=== PATIENT | female | born 1940 | race Caucasian/White ===

== ENCOUNTER 2020-11-27 13:49 | Inpatient (IN) | payer MEDICARE, BC ==
[2020-11-27 14:30] LABS: Hemoglobin 12.5 g/dL (12.0-15.5); Mean Corpuscular HGB CONC 31.8 g/dL (32.0-36.0); Mean Corpuscular Hemoglobin 26.8 pg (27.0-33.0); Mean Corpuscular Volume 84.2 fl (81.6-98.3); Mean Platelet Volume 12.2 fl (7.4-10.4); Platelet Count 139 10x3/uL (150-450); RBC Distribution Width 13.9 % (11.5-14.5); Red Blood Cell (RBC) Count 4.67 10x6/uL (3.90-5.03); White Blood Cell (WBC) Count 3.3 10x3/uL (3.5-10.5)
[2020-11-27 14:35] LABS: ALT (SGPT) 33 U/L (8-55); AST (SGOT) 64 U/L (5-34); Albumin 3.6 g/dL (3.4-4.8); Alkaline Phosphatase 54 U/L (40-110); Anion Gap 18 mmol/L (10-20); BUN (Urea Nitrogen) 22 mg/dL (9.8-20.1); Bilirubin, Total 0.5 mg/dL (0.2-1.2); Calc. Creatinine Clearance 0 mL/min (70-130); Calcium 8.9 mg/dL (7.8-10.44); Carbon Dioxide 23 mmol/L (23-31); Chloride 99 mmol/L (98-107); Globulin 2.6 g/dL (2.4-3.5); Glucose 145 mg/dL (83-110); Potassium 3.9 mmol/L (3.5-5.1); Protein, Total 6.2 g/dL (5.8-8.1); Sodium 136 mmol/L (136-145)
[2020-11-27 14:40] LABS: PTT 30.8 sec (22.0-33.0); Prothrombin Time 10.6 sec (9.5-12.1)
[2020-11-27 15:10] LABS: SARS-CoV-2 NAA Rapid Test DETECTED (NotDetected)
[2020-11-27 16:00] LABS: Band 37 % (5-11); Lymphocytes 5 % (21-51); Monocytes 2 % (0-10); Neutrophil 52 % (42-75); Reactive Lymphocytes 4 % (0-10)
[2020-11-27 16:01] LABS: MDiff Complete? YES; Manual Diff?? YES
[2020-11-27 16:02] LABS: Platelet Morphology Comment Appears Adequate
[2020-11-27] MEDS ORDERED: Ondansetron PF 4 MG/2 ML Vial IVP PRN (16:53)
[2020-11-27] MEDS ORDERED: Albuterol Sulfate 2.5 mg/3 ml Neb NEB PRN (17:07)
[2020-11-27 17:08] LABS: ALV-art Gradient 576.725 mmHg (0-20); Actual Bicarbonate (HCO3a) 25.1 mEq/L (22-28); CO2 Tension 42.3 mmHg (35.0-45.0); Calcium, Ionized (arterial) 1.17 mmol/L (1.12-1.30); Carboxyhemoglobin (COHb) 0.3 gm% (0.0-3.0); Hemoglobin (Hb) 13.6 g/dL (12.0-16.0); O2 Tension (PaO2), arterial 83.4 mmHg (> 70.0); Potassium - ABG Lab 3.9 mmol/L (3.70-5.30); Puncture Site RRA; pH, Arterial 7.39 (7.35-7.45)
[2020-11-27] MEDS ORDERED: Dexamethasone 10 MG/ML VIAL ONE (17:13)
[2020-11-27] MEDS ORDERED: Dextrose 5% in Water 1,000 ML IV PRN (17:48)
[2020-11-27] MEDS ORDERED: Dextrose 50% Abboject 50 ML SYRINGE SLOW IVP PRN (17:48)
[2020-11-27] MEDS ORDERED: Vancomycin 1.5 GRAM/300 ML BAG 1.5 GM in Premix Bag 1 BAG IVPB SCH (21:00)
[2020-11-27] MEDS: Dexamethasone 20 MG/5 ML VIAL SLOW IVP SCH (21:21)
[2020-11-27] MEDS: Cefepime 1 GM in Sodium Chloride 0.9% 100 ML IVPB SCH (21:21)
[2020-11-28 05:32] LABS: Anion Gap 18 mmol/L (10-20); BUN (Urea Nitrogen) 26 mg/dL (9.8-20.1); Calc. Creatinine Clearance 58 mL/min (70-130); Calcium 9.7 mg/dL (7.8-10.44); Carbon Dioxide 23 mmol/L (23-31); Chloride 101 mmol/L (98-107); Glucose 172 mg/dL (83-110); Potassium 3.8 mmol/L (3.5-5.1); Sodium 138 mmol/L (136-145)
[2020-11-28] MEDS: Dexamethasone 20 MG/5 ML VIAL SLOW IVP SCH ×2 (09:40→20:44)
[2020-11-28] MEDS: Aspirin 81 mg Enteric Coated Tablet PO SCH (09:41)
[2020-11-28] MEDS: Pantoprazole 40 MG VIAL IVP SCH (09:41)
[2020-11-28] MEDS: Enoxaparin Sodium 40 MG/0.4 ML SYRINGE SC SCH (09:41)
[2020-11-28] MEDS: Cefepime 1 GM in Sodium Chloride 0.9% 100 ML IVPB SCH ×2 (09:41→20:41)
[2020-11-28 11:15] LABS: Hemoglobin A1c 6.1 % (4.0-6.0)
[2020-11-28] MEDS: VANCOMYCIN 1.25 GM/250 ML BAG 1.25 GM in Premix Bag 1 BAG IVPB SCH (20:41)
[2020-11-28] MEDS: Carvedilol 25 MG TAB PO SCH (21:30)
[2020-11-28] MEDS ORDERED: Lorazepam 2 MG/ML VIAL SLOW IVP SCH (23:45)
[2020-11-29] MEDS: hydrALAZINE 20 MG/ML VIAL SLOW IVP PRN ×4 (09:13→22:39)
[2020-11-29] MEDS: Enoxaparin Sodium 40 MG/0.4 ML SYRINGE SC SCH (09:13)
[2020-11-29] MEDS: Cefepime 1 GM in Sodium Chloride 0.9% 100 ML IVPB SCH ×2 (09:14→20:12)
[2020-11-29] MEDS: Dexamethasone 20 MG/5 ML VIAL SLOW IVP SCH ×2 (09:14→20:12)
[2020-11-29] MEDS: Pantoprazole 40 MG VIAL IVP SCH (09:15)
[2020-11-29] MEDS: Carvedilol 25 MG TAB PO SCH ×2 (09:15→20:12)
[2020-11-29] MEDS: NIFEdipine XL 30 MG TAB PO SCH (09:15)
[2020-11-29] MEDS: Aspirin 81 mg Enteric Coated Tablet PO SCH (09:15)
[2020-11-29 09:18] LABS: #Monocytes 0.3 10x3/uL (0.0-1.1); #Neutrophils 4.9 10x3/uL (1.5-8.4); %Lymphocytes 11.4 % (18.0-47.0); %Monocytes 5.3 % (0.0-10.0); %Neutrophils 83.1 % (40.0-75.0); Hemoglobin 13.6 g/dL (12.0-15.5); Mean Corpuscular HGB CONC 32.9 g/dL (32.0-36.0); Mean Corpuscular Hemoglobin 26.7 pg (27.0-33.0); Mean Corpuscular Volume 81.3 fl (81.6-98.3); Mean Platelet Volume 11.7 fl (7.4-10.4); Platelet Count 174 10x3/uL (150-450); RBC Distribution Width 13.9 % (11.5-14.5); Red Blood Cell (RBC) Count 5.09 10x6/uL (3.90-5.03); White Blood Cell (WBC) Count 5.9 10x3/uL (3.5-10.5)
[2020-11-29 09:34] LABS: ALT (SGPT) 25 U/L (8-55); AST (SGOT) 57 U/L (5-34); Albumin 3.5 g/dL (3.4-4.8); Alkaline Phosphatase 54 U/L (40-110); Anion Gap 16 mmol/L (10-20); BUN (Urea Nitrogen) 30 mg/dL (9.8-20.1); Bilirubin, Total 0.4 mg/dL (0.2-1.2); CRP (Inflammatory) 7.95 mg/dL (= or < 0.5); Calc. Creatinine Clearance 80 mL/min (70-130); Calcium 9.9 mg/dL (7.8-10.44); Carbon Dioxide 20 mmol/L (23-31); Chloride 106 mmol/L (98-107); Globulin 3.5 g/dL (2.4-3.5); Glucose 186 mg/dL (83-110); Potassium 4.1 mmol/L (3.5-5.1); Sodium 138 mmol/L (136-145)
[2020-11-29 10:53] LABS: Actual Bicarbonate (HCO3a) 24.6 mEq/L (22-28); Base Excess (BEa) 2.4 mEq/L (-2.0 to +3.0); CO2 Tension 30.9 mmHg (35.0-45.0); Calcium, Ionized (arterial) 1.24 mmol/L (1.12-1.30); Carboxyhemoglobin (COHb) 0.2 gm% (0.0-3.0); Hemoglobin (Hb) 13.9 g/dL (12.0-16.0); O2 Tension (PaO2), arterial 62.6 mmHg (> 70.0); Potassium - ABG Lab 3.7 mmol/L (3.70-5.30); Puncture Site RRA; pH, Arterial 7.52 (7.35-7.45)
[2020-11-29 10:56] LABS: ALV-art Gradient 469.175 mmHg (0-20)
[2020-11-29] MEDS: Lorazepam 2 MG/ML VIAL SLOW IVP PRN ×2 (13:17→20:11)
[2020-11-29] MEDS: HumaLOG 300 UNITS/3 ML VIAL SC PRN (20:12)
[2020-11-29] MEDS ORDERED: Furosemide 40 MG/4 ML VIAL SLOW IVP SCH (20:45)
[2020-11-29] MEDS: VANCOMYCIN 1.25 GM/250 ML BAG 1.25 GM in Premix Bag 1 BAG IVPB SCH (20:58)
[2020-11-29] MEDS ORDERED: Dexmedetomidine 200 MCG/2 ML VIAL SLOW IVP SCH (22:00)
[2020-11-29] MEDS: Dexmedetomidine In 0.9 % NaCl 100 ML IVPB SCH (22:29)
[2020-11-30 04:08] LABS: Hemoglobin 13.1 g/dL (12.0-15.5); Mean Corpuscular HGB CONC 32.8 g/dL (32.0-36.0); Mean Corpuscular Hemoglobin 26.6 pg (27.0-33.0); Mean Corpuscular Volume 81.1 fl (81.6-98.3); Mean Platelet Volume 11.3 fl (7.4-10.4); Platelet Count 178 10x3/uL (150-450); RBC Distribution Width 14.1 % (11.5-14.5); Red Blood Cell (RBC) Count 4.93 10x6/uL (3.90-5.03)
[2020-11-30] MEDS: Dexmedetomidine In 0.9 % NaCl 100 ML IVPB SCH ×2 (04:24→15:27)
[2020-11-30 04:36] LABS: ALT (SGPT) 24 U/L (8-55); AST (SGOT) 43 U/L (5-34); Albumin 3.5 g/dL (3.4-4.8); Alkaline Phosphatase 47 U/L (40-110); Anion Gap 16 mmol/L (10-20); BUN (Urea Nitrogen) 29 mg/dL (9.8-20.1); Bilirubin, Total 0.5 mg/dL (0.2-1.2); Calc. Creatinine Clearance 81 mL/min (70-130); Calcium 9.8 mg/dL (7.8-10.44); Carbon Dioxide 22 mmol/L (23-31); Chloride 107 mmol/L (98-107); Glucose 200 mg/dL (83-110); Potassium 3.6 mmol/L (3.5-5.1); Protein, Total 6.5 g/dL (5.8-8.1); Sodium 141 mmol/L (136-145)
[2020-11-30] MEDS: hydrALAZINE 20 MG/ML VIAL SLOW IVP PRN ×2 (05:53→10:29)
[2020-11-30] MEDS: Furosemide 40 MG/4 ML VIAL SLOW IVP SCH ×2 (05:53→13:53)
[2020-11-30 05:54] LABS: Band 9 % (5-11); Lymphocytes 4 % (21-51); Monocytes 7 % (0-10); Neutrophil 74 % (42-75); Reactive Lymphocytes 6 % (0-10)
[2020-11-30 05:55] LABS: Anisocytosis SLIGHT = 6-15 cells (100X) (0-5/hpf); Microcytosis SLIGHT = 6-15 cells (100X) (0-5/hpf)
[2020-11-30 05:56] LABS: Large Platelets MODERATE; Manual Diff?? YES; Platelet Morphology Comment Appears Adequate
[2020-11-30 05:57] LABS: MDiff Complete? YES
[2020-11-30] MEDS: Dexamethasone 20 MG/5 ML VIAL SLOW IVP SCH ×2 (08:05→20:49)
[2020-11-30] MEDS: Enoxaparin Sodium 40 MG/0.4 ML SYRINGE SC SCH (08:05)
[2020-11-30] MEDS: Aspirin 81 mg Enteric Coated Tablet PO SCH (08:06)
[2020-11-30] MEDS: Pantoprazole 40 MG VIAL IVP SCH (08:06)
[2020-11-30] MEDS: Carvedilol 25 MG TAB PO SCH ×2 (08:06→20:51)
[2020-11-30] MEDS: HumaLOG 300 UNITS/3 ML VIAL SC PRN ×3 (08:27→20:49)
[2020-11-30] MEDS: Cefepime 1 GM in Sodium Chloride 0.9% 100 ML IVPB SCH ×2 (08:27→20:50)
[2020-11-30] MEDS: NIFEdipine XL 30 MG TAB PO SCH (08:28)
[2020-11-30 09:25] LABS: Actual Bicarbonate (HCO3a) 26.9 mEq/L (22-28); Base Excess (BEa) 4.1 mEq/L (-2.0 to +3.0); CO2 Tension 34.5 mmHg (35.0-45.0); Calcium, Ionized (arterial) 1.19 mmol/L (1.12-1.30); Carboxyhemoglobin (COHb) 0.3 gm% (0.0-3.0); Hemoglobin (Hb) 14.6 g/dL (12.0-16.0); O2 Tension (PaO2), arterial 51.7 mmHg (> 70.0); Potassium - ABG Lab 3.3 mmol/L (3.70-5.30); Puncture Site LRA; pH, Arterial 7.51 (7.35-7.45)
[2020-11-30 09:28] LABS: ALV-art Gradient 404.275 mmHg (0-20)
[2020-11-30] MEDS: Vancomycin 1.5 GRAM/300 ML BAG 1.5 GM in Premix Bag 1 BAG IVPB SCH (20:50)
[2020-12-01] MEDS: hydrALAZINE 20 MG/ML VIAL SLOW IVP PRN (02:34)
[2020-12-01] MEDS: Dexmedetomidine In 0.9 % NaCl 100 ML IVPB SCH ×3 (02:34→20:21)
[2020-12-01] MEDS: Lorazepam 2 MG/ML VIAL SLOW IVP PRN ×3 (03:22→20:02)
[2020-12-01] MEDS: Furosemide 40 MG/4 ML VIAL SLOW IVP SCH ×2 (05:12→14:47)
[2020-12-01] MEDS: Carvedilol 25 MG TAB PO SCH ×2 (08:10→20:02)
[2020-12-01] MEDS: Enoxaparin Sodium 40 MG/0.4 ML SYRINGE SC SCH (08:10)
[2020-12-01] MEDS: Dexamethasone 20 MG/5 ML VIAL SLOW IVP SCH ×2 (08:10→20:02)
[2020-12-01] MEDS: NIFEdipine XL 30 MG TAB PO SCH (08:10)
[2020-12-01] MEDS: Aspirin 81 mg Enteric Coated Tablet PO SCH (08:10)
[2020-12-01] MEDS: Cefepime 1 GM in Sodium Chloride 0.9% 100 ML IVPB SCH ×2 (08:11→20:02)
[2020-12-01] MEDS: Pantoprazole 40 MG VIAL IVP SCH (08:11)
[2020-12-01] MEDS: Amino Acids 4.25 %/Dextrose 5% 1,000 ML IV SCH (12:57)
[2020-12-01] MEDS: HumaLOG 300 UNITS/3 ML VIAL SC PRN ×3 (12:58→20:05)
[2020-12-01] MEDS: Vancomycin 1.5 GRAM/300 ML BAG 1.5 GM in Premix Bag 1 BAG IVPB SCH (20:02)
[2020-12-02] MEDS: Dexmedetomidine In 0.9 % NaCl 100 ML IVPB SCH ×3 (01:35→17:47)
[2020-12-02] MEDS: Amino Acids 4.25 %/Dextrose 5% 1,000 ML IV SCH (05:38)
[2020-12-02] MEDS: Furosemide 40 MG/4 ML VIAL SLOW IVP SCH ×2 (05:38→13:40)
[2020-12-02 06:40] LABS: ALT (SGPT) 24 U/L (8-55); AST (SGOT) 33 U/L (5-34); Albumin 3.3 g/dL (3.4-4.8); Alkaline Phosphatase 50 U/L (40-110); Anion Gap 16 mmol/L (10-20); BUN (Urea Nitrogen) 49 mg/dL (9.8-20.1); Bilirubin, Total 0.5 mg/dL (0.2-1.2); Calc. Creatinine Clearance 79 mL/min (70-130); Calcium 9.3 mg/dL (7.8-10.44); Carbon Dioxide 21 mmol/L (23-31); Chloride 107 mmol/L (98-107); Globulin 3.3 g/dL (2.4-3.5); Glucose 323 mg/dL (83-110); Hemoglobin 14.3 g/dL (12.0-15.5); Mean Corpuscular HGB CONC 32.2 g/dL (32.0-36.0); Mean Corpuscular Hemoglobin 26.1 pg (27.0-33.0); Mean Corpuscular Volume 81.2 fl (81.6-98.3); Mean Platelet Volume 11.4 fl (7.4-10.4); Platelet Count 179 10x3/uL (150-450); Protein, Total 6.6 g/dL (5.8-8.1); RBC Distribution Width 13.8 % (11.5-14.5); Red Blood Cell (RBC) Count 5.47 10x6/uL (3.90-5.03); Sodium 141 mmol/L (136-145); White Blood Cell (WBC) Count 4.7 10x3/uL (3.5-10.5)
[2020-12-02 06:44] LABS: Potassium 2.8 mmol/L (3.5-5.1)
[2020-12-02] MEDS: Pantoprazole 40 MG VIAL IVP SCH (07:48)
[2020-12-02] MEDS: Dexamethasone 20 MG/5 ML VIAL SLOW IVP SCH ×2 (07:48→20:58)
[2020-12-02] MEDS: Enoxaparin Sodium 40 MG/0.4 ML SYRINGE SC SCH (07:48)
[2020-12-02] MEDS: Cefepime 1 GM in Sodium Chloride 0.9% 100 ML IVPB SCH ×2 (07:48→20:57)
[2020-12-02] MEDS: Carvedilol 25 MG TAB PO SCH ×2 (07:49→20:57)
[2020-12-02] MEDS: Aspirin 81 mg Enteric Coated Tablet PO SCH (07:49)
[2020-12-02] MEDS: Potassium Chloride 20 MEQ in Premix Bag 1 BAG IVPB SCH ×2 (07:52→09:18)
[2020-12-02] MEDS: NIFEdipine XL 30 MG TAB PO SCH (07:53)
[2020-12-02] MEDS: HumaLOG 300 UNITS/3 ML VIAL SC PRN ×4 (07:54→20:59)
[2020-12-02 08:42] LABS: MDiff Complete? YES
[2020-12-02] MEDS ORDERED: Amino Acids 4.25 %/Dextrose 5% 2,000 ML BAG IV SCH (09:00)
[2020-12-02 09:06] LABS: Band 1 % (5-11); Lymphocytes 8 % (21-51); Monocytes 5 % (0-10); Neutrophil 85 % (42-75); Reactive Lymphocytes 1 % (0-10)
[2020-12-02 09:07] LABS: Platelet Morphology Comment Appears Adequate
[2020-12-02 09:08] LABS: RBC Morphology Normal
[2020-12-02] MEDS: Haloperidol Lactate 5 MG/ML VIAL SLOW IVP SCH ×2 (09:20→20:58)
[2020-12-02] MEDS: Lorazepam 2 MG/ML VIAL SLOW IVP PRN ×2 (10:02→15:10)
[2020-12-02] MEDS: hydrALAZINE 20 MG/ML VIAL SLOW IVP PRN (10:03)
[2020-12-02 12:00] LABS: ALV-art Gradient 605.525 mmHg (0-20); Actual Bicarbonate (HCO3a) 23.5 mEq/L (22-28); Base Excess (BEa) 0.8 mEq/L (-2.0 to +3.0); CO2 Tension 32.7 mmHg (35.0-45.0); Calcium, Ionized (arterial) 1.21 mmol/L (1.12-1.30); Carboxyhemoglobin (COHb) 0.2 gm% (0.0-3.0); Hemoglobin (Hb) 15.4 g/dL (12.0-16.0); O2 Tension (PaO2), arterial 66.6 mmHg (> 70.0); Potassium - ABG Lab 3.4 mmol/L (3.70-5.30); Puncture Site RRA; pH, Arterial 7.48 (7.35-7.45)
[2020-12-02 14:44] LABS: Anion Gap 18 mmol/L (10-20); BUN (Urea Nitrogen) 49 mg/dL (9.8-20.1); Calc. Creatinine Clearance 82 mL/min (70-130); Calcium 9.6 mg/dL (7.8-10.44); Carbon Dioxide 18 mmol/L (23-31); Chloride 107 mmol/L (98-107); Glucose 203 mg/dL (83-110); Magnesium 1.9 mg/dL (1.6-2.6); Potassium 3.4 mmol/L (3.5-5.1); Sodium 140 mmol/L (136-145)
[2020-12-02] MEDS ORDERED: Lantus 1000 UNITS/10 ML VIAL SC SCH ×2 (15:00→21:00)
[2020-12-02] MEDS ORDERED: Potassium Chloride 20 MEQ TAB PO SCH (15:30)
[2020-12-02] MEDS: Vancomycin 1.5 GRAM/300 ML BAG 1.5 GM in Premix Bag 1 BAG IVPB SCH (20:58)
[2020-12-02 21:03] LABS: Vancomycin, Trough 16.1 ug/mL
[2020-12-03] MEDS: Amino Acids 4.25 %/Dextrose 5% 1,000 ML IV SCH (01:16)
[2020-12-03] MEDS: hydrALAZINE 20 MG/ML VIAL SLOW IVP PRN ×2 (02:27→11:13)
[2020-12-03 04:33] LABS: #Monocytes 0.1 10x3/uL (0.0-1.1); #Neutrophils 4.8 10x3/uL (1.5-8.4); %Basophils 0.4 % (0.0-2.0); %Lymphocytes 6.1 % (18.0-47.0); %Monocytes 2.4 % (0.0-10.0); %Neutrophils 88.9 % (40.0-75.0); Hemoglobin 14.3 g/dL (12.0-15.5); Mean Corpuscular HGB CONC 33.3 g/dL (32.0-36.0); Mean Corpuscular Hemoglobin 26.6 pg (27.0-33.0); Mean Corpuscular Volume 80.1 fl (81.6-98.3); Mean Platelet Volume 11.3 fl (7.4-10.4); Platelet Count 200 10x3/uL (150-450); RBC Distribution Width 13.8 % (11.5-14.5); Red Blood Cell (RBC) Count 5.37 10x6/uL (3.90-5.03); White Blood Cell (WBC) Count 5.4 10x3/uL (3.5-10.5)
[2020-12-03 04:40] LABS: ALT (SGPT) 23 U/L (8-55); AST (SGOT) 31 U/L (5-34); Albumin 3.1 g/dL (3.4-4.8); Alkaline Phosphatase 50 U/L (40-110); Anion Gap 16 mmol/L (10-20); BUN (Urea Nitrogen) 49 mg/dL (9.8-20.1); Bilirubin, Total 0.5 mg/dL (0.2-1.2); CRP (Inflammatory) 2.54 mg/dL (= or < 0.5); Calc. Creatinine Clearance 89 mL/min (70-130); Calcium 9.2 mg/dL (7.8-10.44); Carbon Dioxide 17 mmol/L (23-31); Chloride 107 mmol/L (98-107); Globulin 3.1 g/dL (2.4-3.5); Glucose 251 mg/dL (83-110); Potassium 3.1 mmol/L (3.5-5.1); Protein, Total 6.2 g/dL (5.8-8.1); Sodium 137 mmol/L (136-145)
[2020-12-03] MEDS: Furosemide 40 MG/4 ML VIAL SLOW IVP SCH ×2 (05:37→14:33)
[2020-12-03 08:29] LABS: Base Excess (BEa) -0.6 mEq/L (-2.0 to +3.0); CO2 Tension 30.7 mmHg (35.0-45.0); Carboxyhemoglobin (COHb) 0.4 gm% (0.0-3.0); Hemoglobin (Hb) 14.8 g/dL (12.0-16.0); O2 Tension (PaO2), arterial 63.6 mmHg (> 70.0); Puncture Site RRA; pH, Arterial 7.47 (7.35-7.45)
[2020-12-03 08:34] LABS: ALV-art Gradient 611.025 mmHg (0-20)
[2020-12-03] MEDS: Carvedilol 25 MG TAB PO SCH ×2 (08:39→20:53)
[2020-12-03] MEDS: Aspirin 81 mg Enteric Coated Tablet PO SCH (08:39)
[2020-12-03] MEDS: Cefepime 1 GM in Sodium Chloride 0.9% 100 ML IVPB SCH ×2 (08:40→20:55)
[2020-12-03] MEDS: Pantoprazole 40 MG VIAL IVP SCH (08:40)
[2020-12-03] MEDS: NIFEdipine XL 30 MG TAB PO SCH (08:42)
[2020-12-03] MEDS: Haloperidol Lactate 5 MG/ML VIAL SLOW IVP SCH (08:42)
[2020-12-03] MEDS: Dexamethasone 20 MG/5 ML VIAL SLOW IVP SCH ×2 (08:42→20:56)
[2020-12-03] MEDS: Enoxaparin Sodium 40 MG/0.4 ML SYRINGE SC SCH (08:43)
[2020-12-03] MEDS: Dexmedetomidine In 0.9 % NaCl 100 ML IVPB SCH ×2 (08:43→16:17)
[2020-12-03] MEDS ORDERED: Lantus 1000 UNITS/10 ML VIAL SC SCH ×2 (09:00→21:00)
[2020-12-03] MEDS ORDERED: Potassium Chloride 20 MEQ TAB PO ONE ×2 (10:30→12:30)
[2020-12-03] MEDS: HumaLOG 300 UNITS/3 ML VIAL SC PRN ×3 (10:38→20:53)
[2020-12-03] MEDS: Lorazepam 2 MG/ML VIAL SLOW IVP PRN ×2 (11:14→21:23)
[2020-12-03 13:46] LABS: Anion Gap 15 mmol/L (10-20); BUN (Urea Nitrogen) 53 mg/dL (9.8-20.1); Calc. Creatinine Clearance 81 mL/min (70-130); Calcium 9.3 mg/dL (7.8-10.44); Carbon Dioxide 20 mmol/L (23-31); Chloride 108 mmol/L (98-107); Glucose 216 mg/dL (83-110); Magnesium 1.9 mg/dL (1.6-2.6); Potassium 3.3 mmol/L (3.5-5.1); Sodium 140 mmol/L (136-145)
[2020-12-03] MEDS ORDERED: Potassium Chloride 20 MEQ TAB PO SCH (15:15)
[2020-12-03] MEDS: Potassium Chloride 20 MEQ TAB PO SCH (16:12)
[2020-12-03] MEDS ORDERED: Magnesium Sulfate 2 GM in Sodium Chloride 0.9% 100 ML IVPB SCH (16:30)
[2020-12-03] MEDS ORDERED: Magnesium 2 GM/50 ML 2 GM in Premix Bag 1 BAG IVPB SCH (16:45)
[2020-12-03] MEDS: Vancomycin 1.5 GRAM/300 ML BAG 1.5 GM in Premix Bag 1 BAG IVPB SCH (20:56)
[2020-12-04] MEDS: Dexmedetomidine In 0.9 % NaCl 100 ML IVPB SCH ×4 (01:35→17:50)
[2020-12-04 03:56] LABS: #Monocytes 0.3 10x3/uL (0.0-1.1); #Neutrophils 8.2 10x3/uL (1.5-8.4); %Basophils 0.3 % (0.0-2.0); %Lymphocytes 3.4 % (18.0-47.0); %Monocytes 2.9 % (0.0-10.0); %Neutrophils 92.1 % (40.0-75.0); Hemoglobin 14.5 g/dL (12.0-15.5); Mean Corpuscular HGB CONC 32.4 g/dL (32.0-36.0); Mean Corpuscular Hemoglobin 26.3 pg (27.0-33.0); Mean Corpuscular Volume 81.1 fl (81.6-98.3); Mean Platelet Volume 11.9 fl (7.4-10.4); Platelet Count 229 10x3/uL (150-450); RBC Distribution Width 14.2 % (11.5-14.5); Red Blood Cell (RBC) Count 5.51 10x6/uL (3.90-5.03)
[2020-12-04 04:10] LABS: Anion Gap 16 mmol/L (10-20); BUN (Urea Nitrogen) 55 mg/dL (9.8-20.1); Calc. Creatinine Clearance 78 mL/min (70-130); Calcium 9.5 mg/dL (7.8-10.44); Carbon Dioxide 18 mmol/L (23-31); Chloride 113 mmol/L (98-107); Glucose 248 mg/dL (83-110); Magnesium 2.6 mg/dL (1.6-2.6); Phosphorus 3.1 mg/dL (2.3-4.7); Potassium 4.7 mmol/L (3.5-5.1); Sodium 142 mmol/L (136-145)
[2020-12-04] MEDS: Furosemide 40 MG/4 ML VIAL SLOW IVP SCH ×2 (05:08→13:20)
[2020-12-04] MEDS: hydrALAZINE 20 MG/ML VIAL SLOW IVP PRN (06:11)
[2020-12-04] MEDS: Lorazepam 2 MG/ML VIAL SLOW IVP PRN (07:24)
[2020-12-04] MEDS: Carvedilol 25 MG TAB PO SCH ×2 (08:06→20:10)
[2020-12-04] MEDS: Potassium Chloride 20 MEQ TAB PO SCH ×2 (08:06→16:41)
[2020-12-04] MEDS: Dexamethasone 20 MG/5 ML VIAL SLOW IVP SCH ×2 (08:07→19:47)
[2020-12-04] MEDS: Aspirin 81 mg Enteric Coated Tablet PO SCH (08:07)
[2020-12-04] MEDS: NIFEdipine XL 30 MG TAB PO SCH (08:07)
[2020-12-04] MEDS: Enoxaparin Sodium 40 MG/0.4 ML SYRINGE SC SCH (08:07)
[2020-12-04] MEDS: Cefepime 1 GM in Sodium Chloride 0.9% 100 ML IVPB SCH ×2 (08:07→19:47)
[2020-12-04] MEDS: Pantoprazole 40 MG VIAL IVP SCH (08:07)
[2020-12-04 08:28] LABS: Actual Bicarbonate (HCO3a) 19.6 mEq/L (22-28); Base Excess (BEa) -3.2 mEq/L (-2.0 to +3.0); CO2 Tension 29.7 mmHg (35.0-45.0); Calcium, Ionized (arterial) 1.28 mmol/L (1.12-1.30); Carboxyhemoglobin (COHb) 0.3 gm% (0.0-3.0); Hemoglobin (Hb) 15.6 g/dL (12.0-16.0); O2 Tension (PaO2), arterial 62.2 mmHg (> 70.0); Potassium - ABG Lab 4.1 mmol/L (3.70-5.30); Puncture Site RRA; pH, Arterial 7.44 (7.35-7.45)
[2020-12-04 08:30] LABS: ALV-art Gradient 613.675 mmHg (0-20)
[2020-12-04] MEDS ORDERED: Lantus 1000 UNITS/10 ML VIAL SC SCH ×2 (09:00→21:00)
[2020-12-04] MEDS ORDERED: Ventilator Sedation Protocol 1 EACH FS SCH (09:00)
[2020-12-04] MEDS: Propofol 1,000 MG/100 ML VIAL IV PRN ×2 (09:08→17:50)
[2020-12-04] MEDS ORDERED: DISCONTINUE PREVIOUS NARCOTIC PAIN MEDICATIONS AND BENZODIAZEPINES FS SCH (09:15)
[2020-12-04] MEDS ORDERED: Fentanyl BOLUS 250 ML IVPB PRN (09:15)
[2020-12-04] MEDS ORDERED: Propofol BOLUS 1,000 MG/100 ML VIAL IV PRN (09:15)
[2020-12-04] MEDS ORDERED: Lorazepam 2 MG/ML VIAL SLOW IVP PRN (09:15)
[2020-12-04] MEDS ORDERED: fentaNYL Citrate-0.9 % NaCl/PF 100 ML IVPB SCH (09:15)
[2020-12-04] MEDS ORDERED: Rocuronium Bromide 10 MG/ML (10ML VIAL) ONE (09:53)
[2020-12-04 12:51] LABS: ALV-art Gradient 587.075 mmHg (0-20); Actual Bicarbonate (HCO3a) 19.5 mEq/L (22-28); Base Excess (BEa) -4.1 mEq/L (-2.0 to +3.0); CO2 Tension 31.7 mmHg (35.0-45.0); Calcium, Ionized (arterial) 1.26 mmol/L (1.12-1.30); Carboxyhemoglobin (COHb) 0.2 gm% (0.0-3.0); Hemoglobin (Hb) 14.6 g/dL (12.0-16.0); O2 Tension (PaO2), arterial 86.3 mmHg (> 70.0); Puncture Site Arterial Line; pH, Arterial 7.41 (7.35-7.45)
[2020-12-04] MEDS: HumaLOG 300 UNITS/3 ML VIAL SC PRN ×3 (13:37→22:54)
[2020-12-04 17:04] LABS: Actual Bicarbonate (HCO3a) 21.1 mEq/L (22-28); Base Excess (BEa) -2.9 mEq/L (-2.0 to +3.0); CO2 Tension 34.6 mmHg (35.0-45.0); Calcium, Ionized (arterial) 1.27 mmol/L (1.12-1.30); Carboxyhemoglobin (COHb) 0.4 gm% (0.0-3.0); Hemoglobin (Hb) 14.9 g/dL (12.0-16.0); O2 Tension (PaO2), arterial 76.1 mmHg (> 70.0); Potassium - ABG Lab 3.9 mmol/L (3.70-5.30); Puncture Site Arterial Line
[2020-12-04] MEDS: Vancomycin 1.5 GRAM/300 ML BAG 1.5 GM in Premix Bag 1 BAG IVPB SCH (20:13)
[2020-12-05] MEDS ORDERED: Fentanyl CADD 100 ML ONE (03:01)
[2020-12-05] MEDS: Propofol 1,000 MG/100 ML VIAL IV PRN ×2 (03:19→08:42)
[2020-12-05 03:37] LABS: #Monocytes 0.2 10x3/uL (0.0-1.1); #Neutrophils 8.8 10x3/uL (1.5-8.4); %Basophils 0.2 % (0.0-2.0); %Lymphocytes 2.1 % (18.0-47.0); %Neutrophils 94.6 % (40.0-75.0); Hemoglobin 13.9 g/dL (12.0-15.5); Mean Corpuscular HGB CONC 31.6 g/dL (32.0-36.0); Mean Corpuscular Hemoglobin 26.2 pg (27.0-33.0); Mean Platelet Volume 12.8 fl (7.4-10.4); Platelet Count 228 10x3/uL (150-450); RBC Distribution Width 14.7 % (11.5-14.5); White Blood Cell (WBC) Count 9.3 10x3/uL (3.5-10.5)
[2020-12-05 03:51] LABS: ALT (SGPT) 20 U/L (8-55); AST (SGOT) 17 U/L (5-34); Albumin 2.9 g/dL (3.4-4.8); Alkaline Phosphatase 51 U/L (40-110); Anion Gap 17 mmol/L (10-20); BUN (Urea Nitrogen) 82 mg/dL (9.8-20.1); Bilirubin, Total 0.4 mg/dL (0.2-1.2); CRP (Inflammatory) 11.33 mg/dL (= or < 0.5); Calc. Creatinine Clearance 57 mL/min (70-130); Calcium 9.4 mg/dL (7.8-10.44); Carbon Dioxide 18 mmol/L (23-31); Chloride 116 mmol/L (98-107); Globulin 2.7 g/dL (2.4-3.5); Glucose 246 mg/dL (83-110); Magnesium 2.7 mg/dL (1.6-2.6); Potassium 4.4 mmol/L (3.5-5.1); Protein, Total 5.6 g/dL (5.8-8.1); Sodium 147 mmol/L (136-145)
[2020-12-05] MEDS: HumaLOG 300 UNITS/3 ML VIAL SC PRN ×4 (04:24→23:03)
[2020-12-05] MEDS: Furosemide 40 MG/4 ML VIAL SLOW IVP SCH ×2 (06:41→13:19)
[2020-12-05] MEDS: Aspirin 81 mg Enteric Coated Tablet PO SCH (08:25)
[2020-12-05] MEDS: Potassium Chloride 20 MEQ TAB PO SCH ×2 (08:25→18:18)
[2020-12-05] MEDS: Enoxaparin Sodium 40 MG/0.4 ML SYRINGE SC SCH (08:25)
[2020-12-05] MEDS: Dexamethasone 20 MG/5 ML VIAL SLOW IVP SCH ×2 (08:25→19:55)
[2020-12-05] MEDS: Cefepime 1 GM in Sodium Chloride 0.9% 100 ML IVPB SCH ×2 (08:26→19:56)
[2020-12-05] MEDS: Pantoprazole 40 MG VIAL IVP SCH (08:26)
[2020-12-05] MEDS: Dexmedetomidine In 0.9 % NaCl 100 ML IVPB SCH ×2 (08:27→19:57)
[2020-12-05] MEDS ORDERED: Lantus 1000 UNITS/10 ML VIAL SC SCH ×3 (09:00→21:00)
[2020-12-05] MEDS: Carvedilol 25 MG TAB PO SCH ×2 (10:06→19:55)
[2020-12-05] MEDS: NIFEdipine XL 30 MG TAB PO SCH (10:06)
[2020-12-05] MEDS: Lantus 1000 UNITS/10 ML VIAL SC SCH (10:39)
[2020-12-05 11:16] LABS: ALV-art Gradient 593.675 mmHg (0-20); Actual Bicarbonate (HCO3a) 21.8 mEq/L (22-28); Base Excess (BEa) -3.3 mEq/L (-2.0 to +3.0); CO2 Tension 39.7 mmHg (35.0-45.0); Calcium, Ionized (arterial) 1.28 mmol/L (1.12-1.30); Carboxyhemoglobin (COHb) 0.2 gm% (0.0-3.0); Hemoglobin (Hb) 14.1 g/dL (12.0-16.0); O2 Tension (PaO2), arterial 69.7 mmHg (> 70.0); Potassium - ABG Lab 4.1 mmol/L (3.70-5.30); Puncture Site RRA; pH, Arterial 7.36 (7.35-7.45)
[2020-12-05] MEDS: Acetaminophen 325 MG TAB PO PRN (13:19)
[2020-12-05] MEDS: Fentanyl CADD 100 ML IVPB SCH (18:54)
[2020-12-05 20:57] LABS: Vancomycin, Trough 24.3 ug/mL
[2020-12-06] MEDS: Propofol 1,000 MG/100 ML VIAL IV PRN ×4 (00:14→20:28)
[2020-12-06] MEDS: Dexmedetomidine In 0.9 % NaCl 100 ML IVPB SCH ×4 (02:19→18:39)
[2020-12-06] MEDS: hydrALAZINE 20 MG/ML VIAL SLOW IVP PRN (05:24)
[2020-12-06] MEDS: Furosemide 40 MG/4 ML VIAL SLOW IVP SCH ×4 (05:24→23:30)
[2020-12-06] MEDS: HumaLOG 300 UNITS/3 ML VIAL SC PRN ×3 (06:25→21:50)
[2020-12-06 08:19] LABS: #Monocytes 0.2 10x3/uL (0.0-1.1); #Neutrophils 7.7 10x3/uL (1.5-8.4); %Basophils 0.2 % (0.0-2.0); %Monocytes 2.7 % (0.0-10.0); %Neutrophils 92.9 % (40.0-75.0); Hemoglobin 14.3 g/dL (12.0-15.5); Mean Corpuscular HGB CONC 32.4 g/dL (32.0-36.0); Mean Corpuscular Hemoglobin 26.8 pg (27.0-33.0); Mean Corpuscular Volume 82.7 fl (81.6-98.3); Mean Platelet Volume 13.1 fl (7.4-10.4); Platelet Count 192 10x3/uL (150-450); RBC Distribution Width 14.8 % (11.5-14.5); Red Blood Cell (RBC) Count 5.33 10x6/uL (3.90-5.03); White Blood Cell (WBC) Count 8.3 10x3/uL (3.5-10.5)
[2020-12-06 08:23] LABS: ALT (SGPT) 15 U/L (8-55); AST (SGOT) 15 U/L (5-34); Alkaline Phosphatase 52 U/L (40-110); Anion Gap 16 mmol/L (10-20); BUN (Urea Nitrogen) 89 mg/dL (9.8-20.1); Bilirubin, Total 0.4 mg/dL (0.2-1.2); CRP (Inflammatory) 12.65 mg/dL (= or < 0.5); Calc. Creatinine Clearance 59 mL/min (70-130); Calcium 9.8 mg/dL (7.8-10.44); Carbon Dioxide 21 mmol/L (23-31); Chloride 113 mmol/L (98-107); Globulin 3.4 g/dL (2.4-3.5); Glucose 393 mg/dL (83-110); Magnesium 2.4 mg/dL (1.6-2.6); Potassium 3.8 mmol/L (3.5-5.1); Protein, Total 6.4 g/dL (5.8-8.1); Sodium 146 mmol/L (136-145)
[2020-12-06] MEDS: Lantus 1000 UNITS/10 ML VIAL SC SCH (08:40)
[2020-12-06] MEDS: Enoxaparin Sodium 40 MG/0.4 ML SYRINGE SC SCH ×2 (08:41→20:28)
[2020-12-06] MEDS: Pantoprazole 40 MG VIAL IVP SCH (08:41)
[2020-12-06] MEDS: Vancomycin HCl 1 GM in Sodium Chloride 0.9% 250 ML 250 ML IVPB SCH (08:42)
[2020-12-06] MEDS: Carvedilol 25 MG TAB PO SCH ×3 (08:42→20:27)
[2020-12-06] MEDS: Potassium Chloride 20 MEQ TAB PO SCH ×2 (08:42→14:01)
[2020-12-06] MEDS: Dexamethasone 20 MG/5 ML VIAL SLOW IVP SCH ×2 (08:42→20:27)
[2020-12-06] MEDS: NIFEdipine XL 30 MG TAB PO SCH ×2 (08:43→10:44)
[2020-12-06] MEDS: Aspirin 81 mg Enteric Coated Tablet PO SCH (08:44)
[2020-12-06] MEDS ORDERED: Lantus 1000 UNITS/10 ML VIAL SC SCH ×2 (10:29→21:00)
[2020-12-06 11:14] LABS: Anion Gap 15 mmol/L (10-20); BUN (Urea Nitrogen) 88 mg/dL (9.8-20.1); Calc. Creatinine Clearance 61 mL/min (70-130); Calcium 9.4 mg/dL (7.8-10.44); Carbon Dioxide 20 mmol/L (23-31); Chloride 116 mmol/L (98-107); Glucose 399 mg/dL (83-110); Potassium 3.9 mmol/L (3.5-5.1); Sodium 147 mmol/L (136-145)
[2020-12-06] MEDS ORDERED: Amlodipine 5 MG TAB PER TUBE SCH (11:15)
[2020-12-06 12:09] LABS: Actual Bicarbonate (HCO3a) 22.7 mEq/L (22-28); Base Excess (BEa) -2.4 mEq/L (-2.0 to +3.0); CO2 Tension 39.9 mmHg (35.0-45.0); Calcium, Ionized (arterial) 1.26 mmol/L (1.12-1.30); Carboxyhemoglobin (COHb) 0.5 gm% (0.0-3.0); O2 Tension (PaO2), arterial 61.7 mmHg (> 70.0); Potassium - ABG Lab 3.7 mmol/L (3.70-5.30); Puncture Site Arterial Line; pH, Arterial 7.37 (7.35-7.45)
[2020-12-06 12:12] LABS: ALV-art Gradient 458.825 mmHg (0-20)
[2020-12-06] MEDS: Fentanyl CADD 100 ML IVPB SCH (14:01)
[2020-12-06 22:54] LABS: Anion Gap 18 mmol/L (10-20); BUN (Urea Nitrogen) 99 mg/dL (9.8-20.1); Calc. Creatinine Clearance 53 mL/min (70-130); Calcium 9.6 mg/dL (7.8-10.44); Carbon Dioxide 22 mmol/L (23-31); Chloride 116 mmol/L (98-107); Glucose 313 mg/dL (83-110); Potassium 4.5 mmol/L (3.5-5.1); Sodium 151 mmol/L (136-145)
[2020-12-07] MEDS: HumaLOG 300 UNITS/3 ML VIAL SC PRN ×3 (01:00→21:04)
[2020-12-07] MEDS: Dexmedetomidine In 0.9 % NaCl 100 ML IVPB SCH ×3 (03:12→23:00)
[2020-12-07] MEDS: Fentanyl CADD 100 ML IVPB SCH ×2 (04:33→16:57)
[2020-12-07 06:59] LABS: ALV-art Gradient 330.675 mmHg (0-20); Actual Bicarbonate (HCO3a) 27.8 mEq/L (22-28); Base Excess (BEa) 3.7 mEq/L (-2.0 to +3.0); CO2 Tension 40.1 mmHg (35.0-45.0); Calcium, Ionized (arterial) 1.26 mmol/L (1.12-1.30); Carboxyhemoglobin (COHb) 0.5 gm% (0.0-3.0); Hemoglobin (Hb) 14.7 g/dL (12.0-16.0); Potassium - ABG Lab 4.5 mmol/L (3.70-5.30); Puncture Site Arterial Line; pH, Arterial 7.46 (7.35-7.45)
[2020-12-07] MEDS: Furosemide 40 MG/4 ML VIAL SLOW IVP SCH ×4 (08:14→23:00)
[2020-12-07] MEDS: Propofol 1,000 MG/100 ML VIAL IV PRN ×2 (10:04→17:48)
[2020-12-07] MEDS: Dexamethasone 20 MG/5 ML VIAL SLOW IVP SCH ×2 (10:05→21:00)
[2020-12-07] MEDS: Enoxaparin Sodium 40 MG/0.4 ML SYRINGE SC SCH ×2 (10:05→21:01)
[2020-12-07] MEDS: Pantoprazole 40 MG VIAL IVP SCH (10:06)
[2020-12-07] MEDS: Aspirin 81 mg Enteric Coated Tablet PO SCH (10:07)
[2020-12-07] MEDS: Potassium Chloride 20 MEQ TAB PO SCH ×2 (10:07→16:57)
[2020-12-07] MEDS: Carvedilol 25 MG TAB PO SCH ×2 (10:08→23:01)
[2020-12-07] MEDS: Amlodipine 5 MG TAB PER TUBE SCH (10:08)
[2020-12-07] MEDS: Lantus 1000 UNITS/10 ML VIAL SC SCH ×2 (10:10→21:02)
[2020-12-07] MEDS: Vancomycin HCl 1 GM in Sodium Chloride 0.9% 250 ML 250 ML IVPB SCH (13:15)
[2020-12-07] MEDS ORDERED: HumaLOG 300 UNITS/3 ML VIAL SC PRN (18:30)
[2020-12-08] MEDS: Dexmedetomidine In 0.9 % NaCl 100 ML IVPB SCH ×2 (04:51→09:40)
[2020-12-08] MEDS: HumaLOG 300 UNITS/3 ML VIAL SC PRN (05:00)
[2020-12-08] MEDS: Furosemide 40 MG/4 ML VIAL SLOW IVP SCH ×3 (06:21→17:00)
[2020-12-08 08:15] LABS: Actual Bicarbonate (HCO3a) 25.2 mEq/L (22-28); Base Excess (BEa) 0.7 mEq/L (-2.0 to +3.0); CO2 Tension 39.9 mmHg (35.0-45.0); Calcium, Ionized (arterial) 1.25 mmol/L (1.12-1.30); Carboxyhemoglobin (COHb) 0.6 gm% (0.0-3.0); Hemoglobin (Hb) 14.9 g/dL (12.0-16.0); O2 Tension (PaO2), arterial 53.4 mmHg (> 70.0); Potassium - ABG Lab 3.4 mmol/L (3.70-5.30); Puncture Site Arterial Line; pH, Arterial 7.42 (7.35-7.45)
[2020-12-08 08:19] LABS: ALV-art Gradient 395.825 mmHg (0-20)
[2020-12-08 09:11] LABS: #Monocytes 0.7 10x3/uL (0.0-1.1); #Neutrophils 14.3 10x3/uL (1.5-8.4); %Basophils 0.2 % (0.0-2.0); %Lymphocytes 2.9 % (18.0-47.0); %Monocytes 4.4 % (0.0-10.0); %Neutrophils 91.3 % (40.0-75.0); Hemoglobin 14.2 g/dL (12.0-15.5); Mean Corpuscular HGB CONC 31.3 g/dL (32.0-36.0); Mean Corpuscular Hemoglobin 26.1 pg (27.0-33.0); Mean Corpuscular Volume 83.1 fl (81.6-98.3); Platelet Count 216 10x3/uL (150-450); RBC Distribution Width 15.3 % (11.5-14.5); Red Blood Cell (RBC) Count 5.45 10x6/uL (3.90-5.03); White Blood Cell (WBC) Count 15.6 10x3/uL (3.5-10.5)
[2020-12-08 09:19] LABS: ALT (SGPT) 13 U/L (8-55); AST (SGOT) 14 U/L (5-34); Alkaline Phosphatase 53 U/L (40-110); Anion Gap 18 mmol/L (10-20); Bilirubin, Total 0.3 mg/dL (0.2-1.2); Calc. Creatinine Clearance 45 mL/min (70-130); Calcium 9.5 mg/dL (7.8-10.44); Carbon Dioxide 24 mmol/L (23-31); Chloride 115 mmol/L (98-107); Globulin 3.3 g/dL (2.4-3.5); Glucose 358 mg/dL (83-110); Magnesium 2.4 mg/dL (1.6-2.6); Potassium 3.5 mmol/L (3.5-5.1); Protein, Total 6.3 g/dL (5.8-8.1); Sodium 153 mmol/L (136-145)
[2020-12-08 09:30] LABS: BUN (Urea Nitrogen) 116 mg/dL (9.8-20.1)
[2020-12-08] MEDS: Dexamethasone 20 MG/5 ML VIAL SLOW IVP SCH ×2 (09:37→23:08)
[2020-12-08] MEDS: Pantoprazole 40 MG VIAL IVP SCH (09:37)
[2020-12-08] MEDS: Enoxaparin Sodium 40 MG/0.4 ML SYRINGE SC SCH ×2 (09:37→20:52)
[2020-12-08] MEDS: Amlodipine 5 MG TAB PER TUBE SCH (09:38)
[2020-12-08] MEDS: Aspirin 81 mg Enteric Coated Tablet PO SCH (09:38)
[2020-12-08] MEDS: Potassium Chloride 20 MEQ TAB PO SCH ×2 (09:38→16:56)
[2020-12-08] MEDS: Carvedilol 25 MG TAB PO SCH ×2 (09:39→20:52)
[2020-12-08] MEDS: Propofol 1,000 MG/100 ML VIAL IV PRN ×2 (09:40→20:51)
[2020-12-08] MEDS: Vancomycin HCl 1 GM in Sodium Chloride 0.9% 250 ML 250 ML IVPB SCH (09:40)
[2020-12-08] MEDS: Fentanyl CADD 100 ML IVPB SCH (09:41)
[2020-12-08] MEDS: INSULIN REGULAR IN 0.9 % NACL 100 UNIT in Premix Bag 1 BAG IVPB SCH (10:02)
[2020-12-08] MEDS: Furosemide 20 MG/2 ML VIAL ONE (11:42)
[2020-12-08 14:01] LABS: Actual Bicarbonate (HCO3a) 23.6 mEq/L (22-28); Base Excess (BEa) -1.6 mEq/L (-2.0 to +3.0); CO2 Tension 41.6 mmHg (35.0-45.0); Calcium, Ionized (arterial) 1.23 mmol/L (1.12-1.30); Carboxyhemoglobin (COHb) 0.6 gm% (0.0-3.0); Hemoglobin (Hb) 14.3 g/dL (12.0-16.0); O2 Tension (PaO2), arterial 52.7 mmHg (> 70.0); Potassium - ABG Lab 3.4 mmol/L (3.70-5.30); Puncture Site Arterial Line; pH, Arterial 7.37 (7.35-7.45)
[2020-12-08] MEDS ORDERED: Norepinephrine 8 MG/0.9% NS 250 ML ONE (17:36)
[2020-12-08 23:22] LABS: Bilirubin Neg (Negative); Blood, Urine 10 (Negative); Clarity Clear (Clear); Glucose, Urine (Dipstick) Normal (Negative); Ketone, Urine Negative (Negative); Leukocyte Negative (Negative); Nitrite Negative (Negative); Protein, Urine (Dipstick) Negative (Neg-Trace); Urobilinogen Normal mg/dL (Less than 2)
[2020-12-08 23:30] LABS: Urine Culture Reflex No No
[2020-12-08 23:32] LABS: WBC/HPF 0-3 HPF (0-3)
[2020-12-08 23:33] LABS: Bacteria/HPF None Seen HPF (None Seen)
[2020-12-09] MEDS: Furosemide 40 MG/4 ML VIAL SLOW IVP SCH ×4 (00:30→17:40)
[2020-12-09 04:25] LABS: Hemoglobin 14.1 g/dL (12.0-15.5); Mean Corpuscular HGB CONC 31.8 g/dL (32.0-36.0); Mean Corpuscular Hemoglobin 26.3 pg (27.0-33.0); Mean Corpuscular Volume 82.8 fl (81.6-98.3); Mean Platelet Volume 13.4 fl (7.4-10.4); Platelet Count 263 10x3/uL (150-450); RBC Distribution Width 15.7 % (11.5-14.5); Red Blood Cell (RBC) Count 5.36 10x6/uL (3.90-5.03); White Blood Cell (WBC) Count 22.2 10x3/uL (3.5-10.5)
[2020-12-09 04:44] LABS: MDiff Complete? YES
[2020-12-09 04:47] LABS: Band 6 % (5-11); Lymphocytes 1 % (21-51); Metamyelocyte 1 % (0-0); Monocytes 3 % (0-10); Neutrophil 88 % (42-75); Promyelocytes 1 % (0-0)
[2020-12-09 04:50] LABS: Platelet Clumps SLIGHT; Platelet Morphology Comment PLT clumps seen-ADEQ; RBC Morphology Normal
[2020-12-09 06:16] LABS: ALT (SGPT) 13 U/L (8-55); AST (SGOT) 20 U/L (5-34); Albumin 2.9 g/dL (3.4-4.8); Alkaline Phosphatase 51 U/L (40-110); Anion Gap 18 mmol/L (10-20); Bilirubin, Total 0.4 mg/dL (0.2-1.2); Calc. Creatinine Clearance 47 mL/min (70-130); Calcium 9.6 mg/dL (7.8-10.44); Carbon Dioxide 24 mmol/L (23-31); Chloride 118 mmol/L (98-107); Globulin 3.3 g/dL (2.4-3.5); Glucose 168 mg/dL (83-110); Potassium 4.4 mmol/L (3.5-5.1); Protein, Total 6.2 g/dL (5.8-8.1); Sodium 156 mmol/L (136-145)
[2020-12-09 06:26] LABS: BUN (Urea Nitrogen) 117 mg/dL (9.8-20.1)
[2020-12-09 07:14] LABS: Actual Bicarbonate (HCO3a) 26.4 mEq/L (22-28); Base Excess (BEa) 1.6 mEq/L (-2.0 to +3.0); CO2 Tension 42.1 mmHg (35.0-45.0); Calcium, Ionized (arterial) 1.23 mmol/L (1.12-1.30); Hemoglobin (Hb) 14.4 g/dL (12.0-16.0); O2 Tension (PaO2), arterial 44.8 mmHg (> 70.0); Potassium - ABG Lab 4.3 mmol/L (3.70-5.30); Puncture Site Arterial Line; pH, Arterial 7.42 (7.35-7.45)
[2020-12-09 07:20] LABS: ALV-art Gradient 401.675 mmHg (0-20)
[2020-12-09] MEDS: Dexamethasone 20 MG/5 ML VIAL SLOW IVP SCH ×2 (08:45→20:47)
[2020-12-09] MEDS: Enoxaparin Sodium 40 MG/0.4 ML SYRINGE SC SCH ×2 (08:45→20:48)
[2020-12-09] MEDS: Pantoprazole 40 MG VIAL IVP SCH (08:46)
[2020-12-09] MEDS: Aspirin 81 mg Enteric Coated Tablet PO SCH (08:47)
[2020-12-09] MEDS: Amlodipine 5 MG TAB PER TUBE SCH (08:47)
[2020-12-09] MEDS: Carvedilol 25 MG TAB PO SCH (08:47)
[2020-12-09] MEDS ORDERED: Vecuronium Bromide 50 MG in Sodium Chloride 0.9% 250 ML 250 ML IV SCH (10:37)
[2020-12-09] MEDS ORDERED: Vecuronium 10 MG VIAL IVP SCH (11:00)
[2020-12-09] MEDS: Hydrocortisone Sod Succ/PF 100 mg/2 ml Vial IVP SCH ×2 (11:04→16:06)
[2020-12-09] MEDS: Vecuronium Bromide 50 MG in Sodium Chloride 0.9% 250 ML 250 ML IV SCH ×3 (11:05→23:34)
[2020-12-09 16:23] LABS: Actual Bicarbonate (HCO3a) 26.5 mEq/L (22-28); Base Excess (BEa) 0.8 mEq/L (-2.0 to +3.0); CO2 Tension 46.2 mmHg (35.0-45.0); Calcium, Ionized (arterial) 1.23 mmol/L (1.12-1.30); Carboxyhemoglobin (COHb) 0.9 gm% (0.0-3.0); Hemoglobin (Hb) 13.8 g/dL (12.0-16.0); O2 Tension (PaO2), arterial 60.9 mmHg (> 70.0); Potassium - ABG Lab 4.6 mmol/L (3.70-5.30); Puncture Site Arterial Line; pH, Arterial 7.38 (7.35-7.45)
[2020-12-09] MEDS: Propofol 1,000 MG/100 ML VIAL IV PRN ×2 (18:45→23:34)
[2020-12-10] MEDS: Hydrocortisone Sod Succ/PF 100 mg/2 ml Vial IVP SCH ×4 (00:26→23:26)
[2020-12-10] MEDS: Furosemide 40 MG/4 ML VIAL SLOW IVP SCH ×5 (00:26→23:26)
[2020-12-10] MEDS: Carvedilol 25 MG TAB PO SCH ×3 (06:02→21:57)
[2020-12-10] MEDS: Propofol 1,000 MG/100 ML VIAL IV PRN ×4 (06:03→22:00)
[2020-12-10] MEDS: Vecuronium Bromide 50 MG in Sodium Chloride 0.9% 250 ML 250 ML IV SCH ×3 (06:03→22:00)
[2020-12-10 07:59] LABS: Actual Bicarbonate (HCO3a) 26.8 mEq/L (22-28); Base Excess (BEa) 0.5 mEq/L (-2.0 to +3.0); CO2 Tension 49.4 mmHg (35.0-45.0); Calcium, Ionized (arterial) 1.22 mmol/L (1.12-1.30); Carboxyhemoglobin (COHb) 0.6 gm% (0.0-3.0); Hemoglobin (Hb) 13.8 g/dL (12.0-16.0); Potassium - ABG Lab 3.8 mmol/L (3.70-5.30); Puncture Site Arterial Line; pH, Arterial 7.35 (7.35-7.45)
[2020-12-10] MEDS: Enoxaparin Sodium 40 MG/0.4 ML SYRINGE SC SCH ×2 (08:02→21:57)
[2020-12-10] MEDS: Aspirin 81 mg Enteric Coated Tablet PO SCH (08:02)
[2020-12-10] MEDS: Pantoprazole 40 MG VIAL IVP SCH (08:02)
[2020-12-10] MEDS: Dexamethasone 20 MG/5 ML VIAL SLOW IVP SCH ×2 (08:02→21:57)
[2020-12-10] MEDS: Amlodipine 5 MG TAB PER TUBE SCH (08:03)
[2020-12-10] MEDS: hydrALAZINE 20 MG/ML VIAL SLOW IVP PRN (08:57)
[2020-12-10] MEDS: Fentanyl CADD 100 ML IVPB SCH (10:18)
[2020-12-10 18:25] LABS: ALT (SGPT) 14 U/L (8-55); AST (SGOT) 20 U/L (5-34); Albumin 2.7 g/dL (3.4-4.8); Alkaline Phosphatase 46 U/L (40-110); Anion Gap 19 mmol/L (10-20); Bilirubin, Total 0.4 mg/dL (0.2-1.2); Calc. Creatinine Clearance 40 mL/min (70-130); Calcium 9.5 mg/dL (7.8-10.44); Carbon Dioxide 26 mmol/L (23-31); Chloride 113 mmol/L (98-107); Globulin 3.7 g/dL (2.4-3.5); Glucose 270 mg/dL (83-110); Potassium 3.5 mmol/L (3.5-5.1); Protein, Total 6.4 g/dL (5.8-8.1); Sodium 154 mmol/L (136-145)
[2020-12-10 18:32] LABS: Hemoglobin 13.3 g/dL (12.0-15.5); Mean Corpuscular HGB CONC 32.1 g/dL (32.0-36.0); Mean Corpuscular Hemoglobin 27.4 pg (27.0-33.0); Mean Corpuscular Volume 85.2 fl (81.6-98.3); Mean Platelet Volume 13.7 fl (7.4-10.4); Platelet Count 197 10x3/uL (150-450); RBC Distribution Width 15.8 % (11.5-14.5); Red Blood Cell (RBC) Count 4.86 10x6/uL (3.90-5.03); White Blood Cell (WBC) Count 12.3 10x3/uL (3.5-10.5)
[2020-12-10 18:35] LABS: BUN (Urea Nitrogen) 150 mg/dL (9.8-20.1)
[2020-12-10 19:01] LABS: #Monocytes 0.3 10x3/uL (0.0-1.1); #Neutrophils 11.1 10x3/uL (1.5-8.4); %Basophils 0.2 % (0.0-2.0); %Lymphocytes 3.9 % (18.0-47.0); %Monocytes 2.1 % (0.0-10.0); %Neutrophils 90.8 % (40.0-75.0)
[2020-12-10] MEDS: INSULIN REGULAR IN 0.9 % NACL 100 UNIT in Premix Bag 1 BAG IVPB SCH (22:00)
[2020-12-11] MEDS: Propofol 1,000 MG/100 ML VIAL IV PRN ×5 (03:28→22:27)
[2020-12-11] MEDS: Norepinephrine 8 MG/0.9% NS 250 ML IVPB SCH ×2 (03:28→22:26)
[2020-12-11 04:18] LABS: #Basophils 0.1 10x3/uL (0.0-0.2); #Monocytes 0.3 10x3/uL (0.0-1.1); #Neutrophils 14.2 10x3/uL (1.5-8.4); %Basophils 0.4 % (0.0-2.0); %Lymphocytes 3.8 % (18.0-47.0); %Neutrophils 90.3 % (40.0-75.0); Hemoglobin 12.4 g/dL (12.0-15.5); Mean Corpuscular HGB CONC 31.4 g/dL (32.0-36.0); Mean Corpuscular Hemoglobin 26.6 pg (27.0-33.0); Mean Corpuscular Volume 84.6 fl (81.6-98.3); Mean Platelet Volume 13.6 fl (7.4-10.4); RBC Distribution Width 15.6 % (11.5-14.5); Red Blood Cell (RBC) Count 4.67 10x6/uL (3.90-5.03); White Blood Cell (WBC) Count 15.7 10x3/uL (3.5-10.5)
[2020-12-11 04:19] LABS: Platelet Count 229 10x3/uL (150-450)
[2020-12-11 04:28] LABS: ALT (SGPT) 14 U/L (8-55); AST (SGOT) 18 U/L (5-34); Albumin 2.6 g/dL (3.4-4.8); Alkaline Phosphatase 38 U/L (40-110); Anion Gap 19 mmol/L (10-20); Bilirubin, Total 0.3 mg/dL (0.2-1.2); Calc. Creatinine Clearance 44 mL/min (70-130); Calcium 9.3 mg/dL (7.8-10.44); Carbon Dioxide 26 mmol/L (23-31); Chloride 116 mmol/L (98-107); Glucose 191 mg/dL (83-110); Potassium 3.2 mmol/L (3.5-5.1); Protein, Total 5.6 g/dL (5.8-8.1); Sodium 158 mmol/L (136-145)
[2020-12-11 04:37] LABS: BUN (Urea Nitrogen) 154 mg/dL (9.8-20.1)
[2020-12-11] MEDS: Furosemide 40 MG/4 ML VIAL SLOW IVP SCH ×4 (05:48→23:52)
[2020-12-11 08:08] LABS: Actual Bicarbonate (HCO3a) 29.4 mEq/L (22-28); Base Excess (BEa) 4.3 mEq/L (-2.0 to +3.0); CO2 Tension 45.8 mmHg (35.0-45.0); Carboxyhemoglobin (COHb) 0.7 gm% (0.0-3.0); Hemoglobin (Hb) 13.3 g/dL (12.0-16.0); Potassium - ABG Lab 3.3 mmol/L (3.70-5.30); Puncture Site Arterial Line; pH, Arterial 7.43 (7.35-7.45)
[2020-12-11] MEDS: Dexamethasone 20 MG/5 ML VIAL SLOW IVP SCH ×2 (08:45→22:19)
[2020-12-11] MEDS: Enoxaparin Sodium 40 MG/0.4 ML SYRINGE SC SCH ×2 (08:46→22:19)
[2020-12-11] MEDS: Aspirin 81 mg Enteric Coated Tablet PO SCH (08:46)
[2020-12-11] MEDS: Pantoprazole 40 MG VIAL IVP SCH (08:46)
[2020-12-11] MEDS: Amlodipine 5 MG TAB PER TUBE SCH (08:46)
[2020-12-11] MEDS: Carvedilol 25 MG TAB PO SCH ×2 (08:46→22:19)
[2020-12-11] MEDS: Hydrocortisone Sod Succ/PF 100 mg/2 ml Vial IVP SCH ×2 (11:47→22:19)
[2020-12-11] MEDS: Fentanyl CADD 100 ML IVPB SCH (16:33)
[2020-12-11] MEDS: INSULIN REGULAR IN 0.9 % NACL 100 UNIT in Premix Bag 1 BAG IVPB SCH (17:44)
[2020-12-11] MEDS ORDERED: Furosemide 20 MG/2 ML VIAL ONE (17:44)
[2020-12-12] MEDS: Propofol 1,000 MG/100 ML VIAL IV PRN ×5 (02:57→21:24)
[2020-12-12] MEDS: INSULIN REGULAR IN 0.9 % NACL 100 UNIT in Premix Bag 1 BAG IVPB SCH ×2 (03:57→18:31)
[2020-12-12] MEDS: Furosemide 40 MG/4 ML VIAL SLOW IVP SCH ×4 (06:22→23:43)
[2020-12-12] MEDS: Amlodipine 5 MG TAB PER TUBE SCH (08:04)
[2020-12-12] MEDS: Pantoprazole 40 MG VIAL IVP SCH (08:04)
[2020-12-12] MEDS: Carvedilol 25 MG TAB PO SCH ×2 (08:04→20:46)
[2020-12-12] MEDS: Dexamethasone 20 MG/5 ML VIAL SLOW IVP SCH ×2 (08:04→20:47)
[2020-12-12] MEDS: Aspirin 81 mg Enteric Coated Tablet PO SCH (08:04)
[2020-12-12] MEDS: Enoxaparin Sodium 40 MG/0.4 ML SYRINGE SC SCH ×2 (08:04→20:46)
[2020-12-12 08:28] LABS: Actual Bicarbonate (HCO3a) 30.9 mEq/L (22-28); Base Excess (BEa) 6.6 mEq/L (-2.0 to +3.0); CO2 Tension 42.8 mmHg (35.0-45.0); Calcium, Ionized (arterial) 1.18 mmol/L (1.12-1.30); Carboxyhemoglobin (COHb) 0.4 gm% (0.0-3.0); Hemoglobin (Hb) 13.7 g/dL (12.0-16.0); O2 Tension (PaO2), arterial 71.5 mmHg (> 70.0); Potassium - ABG Lab 3.8 mmol/L (3.70-5.30); Puncture Site Arterial Line; pH, Arterial 7.48 (7.35-7.45)
[2020-12-12 10:00] LABS: ALT (SGPT) 14 U/L (8-55); AST (SGOT) 15 U/L (5-34); Albumin 2.6 g/dL (3.4-4.8); Alkaline Phosphatase 35 U/L (40-110); Anion Gap 18 mmol/L (10-20); Bilirubin, Total 0.4 mg/dL (0.2-1.2); Calc. Creatinine Clearance 42 mL/min (70-130); Calcium 9.3 mg/dL (7.8-10.44); Carbon Dioxide 27 mmol/L (23-31); Chloride 115 mmol/L (98-107); Globulin 2.9 g/dL (2.4-3.5); Glucose 276 mg/dL (83-110); Potassium 3.1 mmol/L (3.5-5.1); Protein, Total 5.5 g/dL (5.8-8.1); Sodium 157 mmol/L (136-145)
[2020-12-12 10:05] LABS: #Monocytes 0.2 10x3/uL (0.0-1.1); #Neutrophils 10.5 10x3/uL (1.5-8.4); %Basophils 0.2 % (0.0-2.0); %Lymphocytes 4.7 % (18.0-47.0); %Monocytes 1.3 % (0.0-10.0); %Neutrophils 92.1 % (40.0-75.0); Hemoglobin 12.2 g/dL (12.0-15.5); Mean Corpuscular HGB CONC 31.8 g/dL (32.0-36.0); Mean Corpuscular Hemoglobin 26.5 pg (27.0-33.0); Mean Corpuscular Volume 83.5 fl (81.6-98.3); Mean Platelet Volume 13.3 fl (7.4-10.4); Platelet Count 204 10x3/uL (150-450); RBC Distribution Width 15.7 % (11.5-14.5); White Blood Cell (WBC) Count 11.4 10x3/uL (3.5-10.5)
[2020-12-12 10:09] LABS: BUN (Urea Nitrogen) 170 mg/dL (9.8-20.1)
[2020-12-12] MEDS: Fentanyl CADD 100 ML IVPB SCH (10:11)
[2020-12-12] MEDS: Norepinephrine 8 MG/0.9% NS 250 ML IVPB SCH ×3 (10:18→23:13)
[2020-12-12] MEDS: Hydrocortisone Sod Succ/PF 100 mg/2 ml Vial IVP SCH ×2 (11:28→23:44)
[2020-12-12] MEDS: Potassium Chloride 20 MEQ in Premix Bag 1 BAG IVPB SCH ×2 (15:01→17:29)
[2020-12-13] MEDS: Propofol 1,000 MG/100 ML VIAL IV PRN ×4 (02:17→16:36)
[2020-12-13 04:48] LABS: Hemoglobin 12.5 g/dL (12.0-15.5); Mean Corpuscular HGB CONC 31.5 g/dL (32.0-36.0); Mean Corpuscular Hemoglobin 26.9 pg (27.0-33.0); Mean Corpuscular Volume 85.4 fl (81.6-98.3); Mean Platelet Volume 13.6 fl (7.4-10.4); Platelet Count 249 10x3/uL (150-450); RBC Distribution Width 15.7 % (11.5-14.5); Red Blood Cell (RBC) Count 4.65 10x6/uL (3.90-5.03); White Blood Cell (WBC) Count 20.9 10x3/uL (3.5-10.5)
[2020-12-13 04:54] LABS: ALT (SGPT) 17 U/L (8-55); AST (SGOT) 21 U/L (5-34); Albumin 2.7 g/dL (3.4-4.8); Alkaline Phosphatase 36 U/L (40-110); Anion Gap 17 mmol/L (10-20); Bilirubin, Total 0.4 mg/dL (0.2-1.2); Calc. Creatinine Clearance 43 mL/min (70-130); Calcium 9.7 mg/dL (7.8-10.44); Carbon Dioxide 32 mmol/L (23-31); Chloride 114 mmol/L (98-107); Globulin 3.2 g/dL (2.4-3.5); Glucose 142 mg/dL (83-110); Potassium 4.1 mmol/L (3.5-5.1); Protein, Total 5.9 g/dL (5.8-8.1); Sodium 159 mmol/L (136-145)
[2020-12-13 05:03] LABS: BUN (Urea Nitrogen) 175 mg/dL (9.8-20.1)
[2020-12-13] MEDS: Furosemide 40 MG/4 ML VIAL SLOW IVP SCH ×4 (05:11→23:17)
[2020-12-13 05:56] LABS: Band 4 % (5-11); Lymphocytes 3 % (21-51); Monocytes 3 % (0-10); Neutrophil 90 % (42-75)
[2020-12-13 05:57] LABS: Anisocytosis SLIGHT = 6-15 cells (100X) (0-5/hpf); Microcytosis SLIGHT = 6-15 cells (100X) (0-5/hpf)
[2020-12-13 05:58] LABS: Large Platelets MODERATE; Manual Diff?? YES; Platelet Clumps SLIGHT; Platelet Morphology Comment Appears Adequate; Toxic Granulation SLIGHT
[2020-12-13 05:59] LABS: MDiff Complete? YES
[2020-12-13 08:10] LABS: Actual Bicarbonate (HCO3a) 27.1 mEq/L (22-28); Base Excess (BEa) 2.5 mEq/L (-2.0 to +3.0); CO2 Tension 41.8 mmHg (35.0-45.0); Calcium, Ionized (arterial) 1.25 mmol/L (1.12-1.30); Carboxyhemoglobin (COHb) 0.3 gm% (0.0-3.0); Hemoglobin (Hb) 13.4 g/dL (12.0-16.0); O2 Tension (PaO2), arterial 79.6 mmHg (> 70.0); Potassium - ABG Lab 3.1 mmol/L (3.70-5.30); Puncture Site Arterial Line; pH, Arterial 7.43 (7.35-7.45)
[2020-12-13] MEDS: Dexamethasone 20 MG/5 ML VIAL SLOW IVP SCH ×2 (09:11→21:00)
[2020-12-13] MEDS: Fentanyl CADD 100 ML IVPB SCH (09:11)
[2020-12-13] MEDS: Amlodipine 5 MG TAB PER TUBE SCH (09:11)
[2020-12-13] MEDS: Enoxaparin Sodium 40 MG/0.4 ML SYRINGE SC SCH ×2 (09:11→21:00)
[2020-12-13] MEDS: Carvedilol 25 MG TAB PO SCH ×2 (09:11→22:16)
[2020-12-13] MEDS: Pantoprazole 40 MG VIAL IVP SCH (09:11)
[2020-12-13] MEDS: Aspirin 81 mg Enteric Coated Tablet PO SCH (09:12)
[2020-12-13] MEDS: Acetaminophen 325 MG TAB PO PRN (09:45)
[2020-12-13 11:30] VITALS: TEMP 97.9
[2020-12-13] MEDS: Hydrocortisone Sod Succ/PF 100 mg/2 ml Vial IVP SCH ×2 (11:30→23:17)
[2020-12-13] MEDS: Norepinephrine 8 MG/0.9% NS 250 ML IVPB SCH ×2 (11:31→20:26)
[2020-12-13] MEDS ORDERED: Insulin Regular 100 UNITS in Sodium Chloride 0.9% 100 ML IVPB SCH (15:30)
[2020-12-13] MEDS ORDERED: HUMULIN R 100 UNITS in Sodium Chloride 0.9% 100 ML IVPB SCH (19:00)
[2020-12-14] MEDS: Norepinephrine 8 MG/0.9% NS 250 ML IVPB SCH ×3 (02:54→21:38)
[2020-12-14 03:45] LABS: ALT (SGPT) 20 U/L (8-55); AST (SGOT) 20 U/L (5-34); Albumin 2.8 g/dL (3.4-4.8); Alkaline Phosphatase 44 U/L (40-110); Anion Gap 20 mmol/L (10-20); Bilirubin, Total 0.7 mg/dL (0.2-1.2); Calc. Creatinine Clearance 39 mL/min (70-130); Calcium 9.6 mg/dL (7.8-10.44); Carbon Dioxide 30 mmol/L (23-31); Chloride 116 mmol/L (98-107); Globulin 3.3 g/dL (2.4-3.5); Glucose 187 mg/dL (83-110); Potassium 3.7 mmol/L (3.5-5.1); Protein, Total 6.1 g/dL (5.8-8.1)
[2020-12-14 03:51] LABS: Hemoglobin 13.1 g/dL (12.0-15.5); Mean Corpuscular HGB CONC 31.8 g/dL (32.0-36.0); Mean Corpuscular Hemoglobin 26.7 pg (27.0-33.0); Mean Corpuscular Volume 83.9 fl (81.6-98.3); Mean Platelet Volume 13.7 fl (7.4-10.4); Platelet Count 233 10x3/uL (150-450); RBC Distribution Width 15.6 % (11.5-14.5); Red Blood Cell (RBC) Count 4.91 10x6/uL (3.90-5.03); White Blood Cell (WBC) Count 32.1 10x3/uL (3.5-10.5)
[2020-12-14 03:55] LABS: BUN (Urea Nitrogen) 166 mg/dL (9.8-20.1)
[2020-12-14 04:12] LABS: Sodium 162 mmol/L (136-145)
[2020-12-14 04:37] LABS: Band 13 % (5-11); Lymphocytes 3 % (21-51); Monocytes 1 % (0-10); Neutrophil 83 % (42-75)
[2020-12-14 04:38] LABS: Anisocytosis SLIGHT = 6-15 cells (100X) (0-5/hpf); Microcytosis SLIGHT = 6-15 cells (100X) (0-5/hpf); Platelet Clumps SLIGHT; Platelet Morphology Comment Appears Adequate; Toxic Granulation SLIGHT
[2020-12-14 04:40] LABS: Large Platelets MODERATE
[2020-12-14 04:41] LABS: MDiff Complete? YES; Manual Diff?? YES
[2020-12-14] MEDS: Propofol 1,000 MG/100 ML VIAL IV PRN ×4 (05:17→21:38)
[2020-12-14] MEDS: Furosemide 40 MG/4 ML VIAL SLOW IVP SCH ×4 (05:23→23:43)
[2020-12-14] MEDS: Fentanyl CADD 100 ML IVPB SCH (05:24)
[2020-12-14] MEDS: Pantoprazole 40 MG VIAL IVP SCH (08:26)
[2020-12-14] MEDS: Dexamethasone 20 MG/5 ML VIAL SLOW IVP SCH ×2 (08:26→21:23)
[2020-12-14] MEDS: Enoxaparin Sodium 40 MG/0.4 ML SYRINGE SC SCH ×2 (08:27→21:23)
[2020-12-14] MEDS: Amlodipine 5 MG TAB PER TUBE SCH (08:27)
[2020-12-14] MEDS: Aspirin 81 mg Enteric Coated Tablet PO SCH (08:27)
[2020-12-14] MEDS: Carvedilol 25 MG TAB PO SCH ×2 (08:28→20:33)
[2020-12-14 09:09] LABS: Actual Bicarbonate (HCO3a) 29.3 mEq/L (22-28); Base Excess (BEa) 4.9 mEq/L (-2.0 to +3.0); CO2 Tension 42.3 mmHg (35.0-45.0); Calcium, Ionized (arterial) 1.13 mmol/L (1.12-1.30); Carboxyhemoglobin (COHb) 0.5 gm% (0.0-3.0); O2 Tension (PaO2), arterial 66.3 mmHg (> 70.0); Potassium - ABG Lab 4.3 mmol/L (3.70-5.30); Puncture Site Arterial Line; pH, Arterial 7.46 (7.35-7.45)
[2020-12-14 09:14] LABS: ALV-art Gradient 379.925 mmHg (0-20)
[2020-12-14] MEDS: Hydrocortisone Sod Succ/PF 100 mg/2 ml Vial IVP SCH ×2 (11:07→23:43)
[2020-12-14] MEDS ORDERED: Fentanyl CADD 100 ML IVPB SCH (12:15)
[2020-12-15] MEDS: Propofol 1,000 MG/100 ML VIAL IV PRN ×2 (03:54→07:55)
[2020-12-15 04:36] VITALS: BMI 36.1
[2020-12-15] MEDS: Furosemide 40 MG/4 ML VIAL SLOW IVP SCH ×2 (05:44→12:08)
[2020-12-15 07:40] LABS: ALV-art Gradient 463.625 mmHg (0-20); Actual Bicarbonate (HCO3a) 27.2 mEq/L (22-28); Base Excess (BEa) 3.5 mEq/L (-2.0 to +3.0); CO2 Tension 37.9 mmHg (35.0-45.0); Calcium, Ionized (arterial) 1.12 mmol/L (1.12-1.30); Carboxyhemoglobin (COHb) 0.2 gm% (0.0-3.0); Hemoglobin (Hb) 12.3 g/dL (12.0-16.0); O2 Tension (PaO2), arterial 59.4 mmHg (> 70.0); Potassium - ABG Lab 3.2 mmol/L (3.70-5.30); Puncture Site Arterial Line; pH, Arterial 7.47 (7.35-7.45)
[2020-12-15] MEDS: Norepinephrine 8 MG/0.9% NS 250 ML IVPB SCH (08:01)
[2020-12-15] MEDS: Enoxaparin Sodium 40 MG/0.4 ML SYRINGE SC SCH (08:24)
[2020-12-15] MEDS: Carvedilol 25 MG TAB PO SCH (08:25)
[2020-12-15] MEDS: Aspirin 81 mg Enteric Coated Tablet PO SCH (08:25)
[2020-12-15] MEDS: Dexamethasone 20 MG/5 ML VIAL SLOW IVP SCH (08:25)
[2020-12-15] MEDS: Amlodipine 5 MG TAB PER TUBE SCH (08:25)
[2020-12-15] MEDS: Pantoprazole 40 MG VIAL IVP SCH (08:25)
[2020-12-15 11:53] VITALS: BP 129/63
[2020-12-15] MEDS: Hydrocortisone Sod Succ/PF 100 mg/2 ml Vial IVP SCH (12:08)
== END 2020-12-15 14:52 | disposition hospice, inpatient (51) | DRG 207 ==
LOC: CSHERS 13:49 → CSHICU 18:42
PROVIDERS: ADMIT Internal Medicine; ATTEND Family Medicine
PROC: 8E0ZXY6 Isolation (ICD-10-PCS; principal; 2020-11-27)
PROC: 5A09557 Assistance with Respiratory Ventilation, Greater than 96 Consecutive Hours, Continuous Positive Airway Pressure (ICD-10-PCS; 2020-11-27)
PROC: 5A1955Z Respiratory Ventilation, Greater than 96 Consecutive Hours (ICD-10-PCS; 2020-12-04)
PROC: 3E033XZ Introduction of Vasopressor into Peripheral Vein, Percutaneous Approach (ICD-10-PCS; 2020-12-04)
PROC: 0BH17EZ Insertion of Endotracheal Airway into Trachea, Via Natural or Artificial Opening (ICD-10-PCS; 2020-12-04)
DX: U07.1 COVID-19 (principal); J12.82 Pneumonia due to coronavirus disease 2019; J96.01 Acute respiratory failure with hypoxia; G93.41 Metabolic encephalopathy; J15.9 Unspecified bacterial pneumonia; N17.9 Acute kidney failure, unspecified; E87.0 Hyperosmolality and hypernatremia; I25.10 Atherosclerotic heart disease of native coronary artery without angina pectoris; Z66 Do not resuscitate; Z51.5 Encounter for palliative care; Z90.710 Acquired absence of both cervix and uterus; Z90.49 Acquired absence of other specified parts of digestive tract; Z86.39 Personal history of other endocrine, nutritional and metabolic disease; I12.9 Hypertensive chronic kidney disease with stage 1 through stage 4 chronic kidney disease, or unspecified chronic kidney disease; N18.2 Chronic kidney disease, stage 2 (mild); R93.89 Abnormal findings on diagnostic imaging of other specified body structures; Z95.1 Presence of aortocoronary bypass graft; E87.6 Hypokalemia; E83.42 Hypomagnesemia; I95.9 Hypotension, unspecified; R73.9 Hyperglycemia, unspecified; T38.0X5A Adverse effect of glucocorticoids and synthetic analogues, initial encounter; Y92.230 Patient room in hospital as the place of occurrence of the external cause; Z79.899 Other long term (current) drug therapy; Z78.1 Physical restraint status
CPT/HCPCS: 0240U; 36415; 36416; 36600; 71045; 71275; 74018; 80048; 80053; 80202; 81001; 82553; 82728; 82805; 83036; 83735; 83880; 84100; 84145; 84484; 85025; 85379; 85610; 85730; 86140; 87040; 93005; 94002; 94003; 94640; 94660; 94760; 96374; 99292; C9113; J0360; J0692; J1100; J1630; J1650; J1720; J1815; J1940; J2060; J2704; J3010; J3370; J3475; J3480; J3490; J7050; J7611

== ENCOUNTER 2020-12-15 14:52 | Inpatient (IN) | payer BC, MEDICARE, OTHER | END 2020-12-15 21:45 | disposition E | DRG 951 | LOC: CSHICU 14:52 | PROVIDERS: ADMIT Internal Medicine; ATTEND Family Medicine | DX: Z51.5 Encounter for palliative care (principal); U07.1 COVID-19; J12.82 Pneumonia due to coronavirus disease 2019; J96.01 Acute respiratory failure with hypoxia; J15.9 Unspecified bacterial pneumonia; G93.41 Metabolic encephalopathy; N17.9 Acute kidney failure, unspecified; I12.9 Hypertensive chronic kidney disease with stage 1 through stage 4 chronic kidney disease, or unspecified chronic kidney disease; N18.2 Chronic kidney disease, stage 2 (mild); I25.10 Atherosclerotic heart disease of native coronary artery without angina pectoris; E11.9 Type 2 diabetes mellitus without complications ==